=== PATIENT | male | born 1980 | race Caucasian/White ===

== ENCOUNTER 2018-02-22 11:34 | Emergency (ER) | payer OTHER ==
--- NOTE | 2018-02-22 12:28 | ED Physician Documentation ---
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 No prior injuries there.) Review of Systems Constitutional: denies: Fever, Chills Cardiac: reports: Reviewed and negative Respiratory: reports: Reviewed and negative GI: reports: Reviewed and negative PD PAST MEDICAL HISTORY - Past Medical History Past Medical History: No - Past Surgical History Past Surgical History: No - Present Medications Home Medications: Ambulatory Orders Medication Instructions Recorded Confirmed Esomeprazole Magnesium [Nexium] 1 tab PO DAILY PRN 02/22/18 02/22/18 Ibuprofen [Motrin] 800 mg PO Q8H PRN #30 tablet 02/22/18 - Allergies Allergies/Adverse Reactions: Allergies Allergy/AdvReac Type Severity Reaction Status Date / Time No Known Drug Allergies Allergy Verified 02/22/18 11:50 - Social History Does the pt smoke?: No Smoking Status: Never smoker Does the pt drink ETOH?: No Does the pt have substance abuse?: No - Immunizations Immunizations are current?: Yes - POLST Patient has POLST: No PD ED PE NORMAL - Vitals Vital signs reviewed: Yes - General General: Alert and oriented X 3, No acute distress - Extremities Extremities: Other (Along the medial side of the fifth metacarpal distally there is a tender ecchymotic area without loss of saccade. However he does feel like the finger is misaligned.) - Neuro Neuro: Alert and oriented X 3, Normal speech Results - Vitals Vitals: Vital Signs - 24 hr 02/22/18 11:47 Temperature 36.5 C Heart Rate 84 Respiratory 14 Rate Blood Pressure 152/90 H O2 Saturation 97 Oxygen O2 Source Room air - Rads (name of study) R hand Radiology: EMP read contemporaneously (Right fifth MC neck frx) Procedures - Splint (location) R hand Splint applied by: Physician Type of splint: Fiberglass, Short arm, Ulnar gutter Other: Patient tolerated well, No complications, Neurovascular intact - Reduction Body part reduced: Right, Metacarpal Fracture or dislocation: Fracture Anesthesia: Hematoma block (4ml lido with epi) Reduction aftercare: Alignment improved, Splint applied, Patient tolerated well PD MEDICAL DECISION MAKING - Sepsis Event Vital Signs: Vital Signs - 24 hr 02/22/18 11:47 Temperature 36.5 C Heart Rate 84 Respiratory 14 Rate Blood Pressure 152/90 H O2 Saturation 97 Oxygen O2 Source Room air Departure - Departure Disposition: 01 Home, Self Care Clinical Impression: Boxers fracture Qualifiers: Encounter type: initial encounter Fracture type: closed Qualified Code(s): S62.339A - Displaced fracture of neck of unspecified metacarpal bone, initial encounter for closed fracture Condition: Good Record reviewed to determine appropriate education?: Yes Instructions: ED Fx Boxer Prescriptions: Ibuprofen [Motrin] 800 mg PO Q8H PRN #30 tablet PRN Reason: PAIN &/OR FEVER Comments: You will need to follow-up with 1 of the orthopedic surgeons at the [facility] next week, call 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 Keep the splint on and dry at all times, do not remove it. Keep it elevated. Your blood pressure was elevated today on check into the emergency department. This does not mean that you have hypertension, it is a common phenomenon to come to the emergency department and have elevated blood pressure. I recommend that you see your primary care physician within the week to have it rechecked when you are feeling better. Forms: Activity restrictions
[2018-02-22] MEDS: LIDOCAINE 1%-EPI 1:100000 20 ML MDV SUBQ STA (12:30)
[2018-02-22] MEDS ORDERED: LIDOCAINE 1%-EPI 1:100000 30 ML MDV ONE (12:41)
--- NOTE | 2018-02-22 12:46 | XRAY Report ---
Procedure Date: 02/22/2018 Accession Number: [id number] / [id number] Procedure: XR - Hand 3 View RT CPT Code: FULL RESULT: EXAM: RIGHT HAND RADIOGRAPHY EXAM DATE: 02/22/2018 12:10 PM. CLINICAL HISTORY: Hurt hand. Fall. Pain along fifth digit. COMPARISON: None. TECHNIQUE: 3 views. FINDINGS: Bones: Oblique fracture largely along the volar aspect of the distal right fifth metacarpal along the metacarpal neck with volar angulation. No intra-articular extent. Joints: Normal. No subluxations. Soft Tissues: Soft tissue swelling. IMPRESSION: 1. Right fifth metacarpal neck fracture. RADIA
[2018-02-22 13:36] VITALS: BP 148/88
== END 2018-02-22 12:45 | disposition home or self-care (01) ==
LOC: ED 11:34
DX: S62.336A Displaced fracture of neck of fifth metacarpal bone, right hand, initial encounter for closed fracture (principal); W01.0XXA Fall on same level from slipping, tripping and stumbling without subsequent striking against object, initial encounter; Y99.1 Military activity; R03.0 Elevated blood-pressure reading, without diagnosis of hypertension
CPT/HCPCS: 26600; 99283

== ENCOUNTER 2023-09-11 08:43 | Emergency (ER) | payer OTHER ==
[2023-09-11 09:05] VITALS: BP 135/88; O2SAT 97
--- NOTE | 2023-09-11 09:20 | XRAY Report ---
PROCEDURE: Hand 3+V RT INDICATIONS: swelling, pain TECHNIQUE: 3 views of the hand(s) acquired. COMPARISON: None. FINDINGS: Bones: No fractures or dislocations. No suspicious bony lesions. Soft tissues: No suspicious soft tissue calcifications or masses. IMPRESSION: No acute fracture. No osseous lesion. If symptoms and/or clinical suspicion for pathology continue, f urther assessment with repeat plain films, or advanced imaging (e.g., CT, MRI, or bone scan) is recom mended for further assessment. Reviewed by: Umer Valenzuela MD on 09/11/2023 9:19 AM [facility] Approved by: Umer Valenzuela MD on 09/11/2023 9:19 AM [facility] Station ID: [id number]
--- NOTE | 2023-09-11 10:03 | ED Physician Documentation ---
PD HPI UPPER EXT INJURY - Stated complaint Stated Complaint: RT HAND SWOLLEN - Chief complaint Chief Complaint: Trauma Ext - History obtained from History obtained from: Patient - Additonal information Additional information: The patient comes to the emergency department chief complaint of right ring finger injury while jumping out of a truck. He states he is really not sure exactly what happened to his finger but that somehow in the process, as he grabbed the edge of the truck to jump down, some sort of twisting or pressure was put on the finger. He states he immediately felt pain and there is quite a bit of swelling. He states it still feels tight but the swelling is better. It hurts to try to flex the finger but he is able to do it somewhat. No other injuries. He states for a while the pain was shooting up into his arm but that has subsided. No other injuries or complaints at this time. PD PAST MEDICAL HISTORY - Past Medical History Past Medical History: Yes Cardiovascular: Hypertension Respiratory: None Neuro: None Endocrine/Autoimmune: None GI: GERD : None HEENT: None Psych: None Musculoskeletal: None Derm: None - Past Surgical History Past Surgical History: No - Present Medications Home Medications: Ambulatory Orders Medication Instructions Recorded Confirmed Omeprazole Magnesium 20 mg PO 09/11/23 hydroCHLOROthiazide [Hydrodiuril] 25 mg PO DAILY 09/11/23 09/11/23 lisinopriL [Zestril] 5 mg PO DAILY 09/11/23 09/11/23 - Allergies Allergies/Adverse Reactions: Allergies Allergy/AdvReac Type Severity Reaction Status Date / Time No Known Drug Allergies Allergy Verified 09/11/23 08:57 - Social History Does the pt smoke?: No Smoking Status: Former smoker Does the pt drink ETOH?: Yes Does the pt have substance abuse?: No - Immunizations Immunizations are current?: Yes - POLST Patient has POLST: No PD ED PE NORMAL - Vitals Vital signs reviewed: Yes - General General: Alert and oriented X 3, No acute distress, Well developed/nourished - HEENT HEENT: Atraumatic, PERRL, EOMI, Moist mucous membranes - Neck Neck: Supple, no meningeal sign - Cardiac Cardiac: Strong equal pulses - Respiratory Respiratory: No respiratory distress - Derm Derm: Normal color, Warm and dry, No rash - Extremities Extremities: No deformity, Other (Mild edema globally, right ring finger. Moderately limited range of motion secondary to pain and stiffness per patient, but strong flexion and extension to resistance noted. No deformity.) - Neuro Neuro: No motor deficit, No sensory deficit, Other (Alert, grossly oriented. Motor and sensory specifically intact in right ring finger.) - Psych Psych: Normal mood, Normal affect Results - Vitals Vitals: Vital Signs - 24 hr 09/11/23 08:58 Temperature 36.1 C L Heart Rate 86 Respiratory 16 Rate Blood Pressure 135/88 H O2 Saturation 97 Oxygen O2 Source Room air - Rads (name of study) Right hand x-ray series Relevant Findings:: Final report received, See rad report (Negative) PD Medical Decision Making - ED course Complexity details: reviewed results, re-evaluated patient, considered differential, d/w patient ED course: The patient's x-ray series was negative. I suspected a sprain of his right ring finger. The patient has been placed in a finger splint for comfort. We have discussed symptomatic management at home and the usual indications for follow-up and return. Departure - Departure Disposition: 01 Home, Self Care Clinical Impression: Sprain of finger of right hand Qualifiers: Encounter type: initial encounter Finger: ring finger Sprain of finger site: unspecified site Qualified Code(s): S63.614A - Unspecified sprain of right ring finger, initial encounter Condition: Stable Instructions: ED Sprain Finger Comments: Your x-rays look good. Most likely you have sprained your finger. You may wear the splint as needed for support and comfort. Please follow-up with your primary doctor as needed. Forms: PCP List, Activity restrictions
== END 2023-09-11 10:32 | disposition home or self-care (01) ==
LOC: ED 08:43
DX: S63.614A Unspecified sprain of right ring finger, initial encounter (principal); X58.XXXA Exposure to other specified factors, initial encounter; I10 Essential (primary) hypertension; Z87.891 Personal history of nicotine dependence
CPT/HCPCS: 99283